=== PATIENT | female | born 2000 | race Caucasian/White ===

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

== ENCOUNTER 2018-01-30 12:30 | Emergency (ER) | payer OTHER, SELFPAY | END 2018-01-30 14:19 | disposition home or self-care (01) | LOC: SCSER 12:30 | DX: J02.9 Acute pharyngitis, unspecified (principal); J06.9 Acute upper respiratory infection, unspecified; E03.9 Hypothyroidism, unspecified; E66.9 Obesity, unspecified; F41.9 Anxiety disorder, unspecified; Z79.899 Other long term (current) drug therapy | CPT/HCPCS: 99282 ==

== ENCOUNTER 2018-04-01 01:00 | Emergency (ER) | payer SELFPAY ==
[2018-04-01 02:23] LABS: Bilirubin Small (Negative); Blood, Urine Trace (Negative); Clarity CLOUDY (Clear); Glucose, Urine (Dipstick) Negative (Negative); Leukocyte Moderate (Negative); Nitrite Positive (Negative); Protein, Urine (Dipstick) 30 mg/dL (Neg-Trace)
[2018-04-01] MEDS ORDERED: Ondansetron HCl/PF 4 MG/2 ML Vial ONE (02:28)
[2018-04-01] MEDS ORDERED: Morphine 4 MG/ML VIAL ONE (02:28)
[2018-04-01 02:34] LABS: Specific Gravity, Urine 1.026 (1.002-1.036)
[2018-04-01 02:35] LABS: RBC/HPF 0-3 HPF (0-3)
[2018-04-01 02:36] LABS: Bacteria/HPF None Seen HPF (None Seen); Crystals/HPF 1+ CA OXALATE HPF (Negative); Hyaline Casts/LPF NONE SEEN LPF (0-3 Hyaline); Renal Epithelial None Seen HPF (0-3); Squamous Epithelial 0-3 HPF (0-3); Transitional Epithelial NONE SEEN HPF (0-3); WBC/HPF 0-3 HPF (0-3); Yeast-All Forms None Seen HPF (None Seen)
[2018-04-01 02:37] LABS: Pregnancy Test - Urine (BHCG) Negative (Negative); Pregu Control Background? CLEAR/WHITE (CLR/WHITE); Pregu Control Bar Appear? YES (CONTROL BAR); Specific Gravity 1.026 (1.002-1.036)
[2018-04-01] MEDS ORDERED: cefTRIAXone\\ROCEPHIN 1 GM VIAL ONE (03:07)
--- NOTE | 2018-04-01 08:24 | CT ---
PRELIMINARY REPORT/[facility]/EMERGENTY AFTER-HOURS PROCEDURE CT Abdomen and Pelvis Without Intravenous Contrast CLINICAL HISTORY: 17 years old, female; Pain; Abdominal pain; Localized; Right; Patient HX: F17 presented to ed C/O sup rapubic abdominal pain, r flank pain, and onset yesterday. Pt reports coming into ed today because sh khadijah began to have a sharp pain in her r flank that is constant. Pt reports taking azo and drinking cranberry juice. Pt reports lmp was last month. Pt reports she takes bc. Pt reports she's monahan d pain previously, but notes that its different compared to her ovarian cysts and previous uti's. TECHNIQUE: Axial computed tomography images of the abdomen and pelvis without intravenous contrast. Coronal reformatted images were created and reviewed. COMPARISON: No relevant prior studies available. FINDINGS: Lung bases: No acute findings. No mass. No consolidation. ABDOMEN: Liver: No mass. Gallbladder and bile ducts: No calcified stones. No ductal dilation. Pancreas: No ductal dilation. No mass. Spleen: No mass. Adrenals: No mass. Kidneys and ureters: 2 mm stone in the right ureterovesical junction with mild hydroureteronephrosis. Otherwise unremarkable. No left hydronephrosis. Stomach and bowel: No evidence of bowel obstruction. Diverticulosis. PELVIS: Appendix: Normal appendix. Bladder: No stones. Reproductive: No acute findings. ABDOMEN and PELVIS: Intraperitoneal space: No free air. No significant fluid collection. Bones/joints: No acute fracture. Soft tissues: No acute findings. Vasculature: No acute findings. No abdominal aortic aneurysm. Lymph nodes: No lymphadenopathy. Few prominent mesenteric lymph nodes. IMPRESSION: Right ureterovesical junction obstructing stone. Thank you for allowing us to participate in the care of your patient. Dictated and Authenticated by: Miguel Angel Will MD 04/01/2018 4:09 AM Central Time ([place] & [place]) FINAL REPORT CT ABDOMEN AND PELVIS NONCONTRAST: DATE: 04/01/2018. TIME: Performed on an emergency basis at 0253 hours. HISTORY: Right flank pain. FINDINGS: Agree with the preliminary report by Dr. Will from [facility]. Partial obstruction at a 2 mm right ureterovesicular junction calculus. No other stones. Lack of contrast limits evaluation for other abnormalities. POS: [facility]
== END 2018-04-01 04:24 | disposition home or self-care (01) ==
LOC: ERS 01:00
DX: N13.2 Hydronephrosis with renal and ureteral calculous obstruction (principal); N39.0 Urinary tract infection, site not specified; E66.9 Obesity, unspecified; E03.9 Hypothyroidism, unspecified; F41.9 Anxiety disorder, unspecified; Z79.84 Long term (current) use of oral hypoglycemic drugs; Z79.899 Other long term (current) drug therapy; Z79.01 Long term (current) use of anticoagulants
CPT/HCPCS: 74176; 81003; 81015; 81025; 87086; 96361; 96365; 96375; J0696; J2270; J2405

== ENCOUNTER 2020-01-11 09:47 | Emergency (ER) | payer OTHER ==
[2020-01-12 12:19] LABS: SARS-CoV-2 MS2 Positive; SARS-CoV-2 N Gene Negative; SARS-CoV-2 S Gene Negative; SARS-CoV-2 orf1ab Negative
== END 2020-01-11 10:05 | disposition home or self-care (01) ==
LOC: ERS 09:47
DX: Z20.828 Contact with and (suspected) exposure to other viral communicable diseases (principal); R73.03 Prediabetes; E03.9 Hypothyroidism, unspecified; E66.9 Obesity, unspecified; F41.9 Anxiety disorder, unspecified; Z87.891 Personal history of nicotine dependence; Z79.01 Long term (current) use of anticoagulants; Z79.899 Other long term (current) drug therapy
CPT/HCPCS: 87635; 99283; U0003

== ENCOUNTER 2020-01-14 06:54 | Inpatient (IN) | payer OTHER ==
[2020-01-14 07:26] VITALS: BMI 39.5
[2020-01-14] MEDS ORDERED: HYDROcodone/Acetaminophen 5/325 mg Tablet PO PRN ×2 (08:31)
[2020-01-14] MEDS ORDERED: hydrALAZINE 20 MG/ML VIAL SLOW IVP PRN (08:31)
[2020-01-14] MEDS ORDERED: Lidocaine 1% (PF) 30 ML VIAL SC PRN (08:31)
[2020-01-14] MEDS ORDERED: Butorphanol Tartrate 1 MG/ML VIAL SLOW IVP PRN (08:31)
[2020-01-14] MEDS ORDERED: Ibuprofen 800 MG TAB PO PRN (08:31)
[2020-01-14] MEDS ORDERED: Promethazine HCl 25 MG/ML VIAL IM PRN ×2 (08:31→12:20)
[2020-01-14] MEDS ORDERED: Ondansetron PF 4 MG/2 ML Vial IVP PRN ×2 (08:31→12:20)
--- NOTE | 2020-01-14 08:31 | PDOC.BPN ---
- Brief Progress Note Interim H&P HISTORY AND PHYSICAL I have seen this patient in Triage A CC: CTX HPI: 19 yo who sees Felicitas Gomez for care, here for CTX at 38 weeks 6 days. She is scheduled for IOL this PM. here for CTX since 0100, no LOF, no VB. Good FM. States HX hypothyroidism on meds, and has had borderline pressures recently. Initial RN exam in triage, unable to check CX opening as baby was "very low". Review of Systems: Complete ROS performed and as per HPI Past medical HX: hypothyroid Past Surgical HX: none Meds: synthroid Social: negative for ETOH, drugs, smoking Allergies: none Physical exam: 140/80 90s afebrile 18 NAD CX: 5/90/0 to +1/cephalic/BOWI Monitors: cat 1, CTX on toco every 5-6 minutes Assessment and Plan: 19 yo at early term 38 weeks 6 days with borderline pressures, hypothyroid, labor. GBS negative Plan: 1. J Light aware 2. Admit 3. Pitocin if no change 4. Hold off Mag for now...check CMP 5. Pain control
[2020-01-14] MEDS: Lactated Ringer's 1,000 ML IV SCH ×2 (09:20→11:00)
[2020-01-14 09:53] LABS: Hemoglobin 13.1 g/dL (12.0-16.0); Mean Corpuscular HGB CONC 32.1 g/dL (32.0-36.0); Mean Corpuscular Hemoglobin 26.1 pg (27.0-31.0); Mean Corpuscular Volume 81.1 fL (78.0-98.0); Mean Platelet Volume 8.9 fL (7.4-10.4); Platelet Count 238 thou/uL (130-400); RBC Distribution Width 14.3 % (11.5-14.5); Red Blood Cell (RBC) Count 5.02 mill/uL (4.20-5.40); White Blood Cell (WBC) Count 12.9 thou/uL (4.8-10.8)
[2020-01-14 10:01] LABS: ALT (SGPT) 7 U/L (8-55); AST (SGOT) 14 U/L (5-34); Albumin 3.4 g/dL (3.5-5.0); Alkaline Phosphatase 229 U/L (40-110); Anion Gap 17 mmol/L (10-20); BUN (Urea Nitrogen) 11 mg/dL (7.0-18.7); Bilirubin, Total 0.3 mg/dL (0.2-1.2); Calc. Creatinine Clearance 248 mL/min (70-130); Calcium 9.2 mg/dL (7.8-10.44); Carbon Dioxide 18 mmol/L (22-29); Chloride 105 mmol/L (98-107); Estimated GFR-MDRD Greater than 90; Globulin 3.6 g/dL (2.4-3.5); Glucose 85 mg/dL (70-105); Potassium 4.5 mmol/L (3.5-5.1); Sodium 135 mmol/L (136-145)
[2020-01-14 10:20] LABS: HBSAg Index 0.14 S/CO (0-0.99); HIV (1/2) Antibody/Antigen Non-Reactive (NonReactive); HIV 1/2 INDEX 0.15 S/CO (<1.00); Hep B Surf Ag Non-Reactive S/CO (NonReactive); Syphilis Antibody Nonreactive (Nonreactive); Syphilis Antibody Index 0.05 S/CO (<1.00 Non-Reactive)
[2020-01-14] MEDS ORDERED: Fentanyl 4 mcg/Bup 0.1% Cadd 100 ML ONE ×2 (10:43→19:55)
[2020-01-14] MEDS ORDERED: diphenhydrAMINE 50 MG/ML VIAL IVP PRN (12:20)
[2020-01-14] MEDS ORDERED: EPHEDRINE 25 MG/5 ML SYRINGE SLOW IVP PRN (12:20)
[2020-01-14] MEDS ORDERED: Acetaminophen 325 MG TAB PO PRN (12:20)
[2020-01-14] MEDS ORDERED: Naloxone HCl 0.4 mg/ml Vial IVP PRN ×2 (12:20)
[2020-01-14] MEDS ORDERED: Lactated Ringer's 500 ML IV PRN (12:20)
[2020-01-14] MEDS ORDERED: Fentanyl 4 mcg/Bupivacaine 0.1% Cassette 100 ML EPIDURAL SCH (12:30)
[2020-01-14] MEDS ORDERED: Communication Order-Pharmacy FS PRN (12:30)
[2020-01-14] MEDS ORDERED: Bupivacaine 0.25% HCL 30 ML VIAL ONE (12:59)
[2020-01-14] MEDS ORDERED: Lidocaine 2% MPF 10 ML AMP (For Epidural Use) ONE (12:59)
[2020-01-14] MEDS ORDERED: EPHEDRINE 25 MG/5 ML SYRINGE ONE (12:59)
--- NOTE | 2020-01-14 13:06 | PDOC.LDPN ---
Labor & Delivery Progress Note - Subjective Subjective: comfortable (with epidural. ) - Objective Abnormal vital signs: Mild range pressures, decreased by epidual General: resting Uterine fundus: non tender Dilation: 6 Effacement: 90% Station: 0 FHT: category 2 [place] contractions every: q4mins AROM: meconium stained fluid IUPC placed: yes FSE placed: yes - Assessment (1) Gestational hypertension Code(s): O13.9 - GESTATIONAL HTN W/O SIGNIFICANT PROTEINURIA, UNSP TRIMESTER Current Visit: Yes Status: Acute (2) Primigravida Code(s): Z34.00 - ENCNTR FOR SUPRVSN OF NORMAL FIRST , UNSP TRIMESTER Current Visit: Yes Status: Acute Plan: continue plan of care
[2020-01-14] MEDS ORDERED: NS w/ Oxytocin 10 units 500 ML ONE (16:47)
[2020-01-14] MEDS ORDERED: Dextrose 5%-Lactated Ringers 1,000 ML IV SCH (20:00)
[2020-01-14] MEDS: NS / Oxytocin 40 units/1000ml 1,000 ML IV PRN ×2 (22:35→23:58)
[2020-01-14] MEDS ORDERED: Misoprostol 200 MCG TAB ONE (22:36)
--- NOTE | 2020-01-14 23:08 | PDOC.OPDEL ---
OB Operative/Delivery Note Delivery Dr/Surgeon: Kole Pre-Delivery Diagnosis: active labor Procedure/Post Delivery Dx: spontaneous vaginal delivery Weeks gestation: 38 (and 6 days) Anesthesia: epidural - Findings A Sex: male Weight: 7 lb 11 oz - 1 min: 7 - 5 min: 8 - Additional Findings/Plan Placenta delivered: spontaneous Repaired Obstetrical Laceration: other (left periurethral) Estimated blood loss: 992mL QBL Post delivery plan: routine recovery
[2020-01-15] MEDS ORDERED: NS / Oxytocin 40 units/1000ml 1,000 ML IV SCH (00:55)
[2020-01-15] MEDS ORDERED: Bisacodyl 10 MG SUPP PR PRN (00:55)
[2020-01-15] MEDS ORDERED: HYDROcodone/Acetaminophen 5/325 mg Tablet PO PRN ×2 (00:55)
[2020-01-15] MEDS ORDERED: hydrALAZINE 20 MG/ML VIAL SLOW IVP PRN (00:55)
[2020-01-15] MEDS ORDERED: Benzocaine-Menthol 82.5 ML CAN TOP PRN (00:55)
[2020-01-15] MEDS ORDERED: Misoprostol 200 MCG TAB VAG PRN (00:55)
[2020-01-15] MEDS ORDERED: Milk Of Magnesia 30 ML UDCUP PO PRN (00:55)
[2020-01-15] MEDS: Ibuprofen 800 MG TAB PO SCH ×3 (02:58→20:27)
[2020-01-15 05:58] LABS: Hemoglobin 10.4 g/dL (12.0-16.0); Mean Corpuscular HGB CONC 31.9 g/dL (32.0-36.0); Mean Corpuscular Volume 81.4 fL (78.0-98.0); Mean Platelet Volume 8.7 fL (7.4-10.4); Platelet Count 218 thou/uL (130-400); RBC Distribution Width 14.4 % (11.5-14.5); White Blood Cell (WBC) Count 16.2 thou/uL (4.8-10.8)
[2020-01-15] MEDS: Lactated Ringer's 1,000 ML IV SCH (07:12)
[2020-01-15] MEDS: Ferrous Sulfate 325 MG TAB PO SCH ×2 (07:20→20:03)
[2020-01-15] MEDS: Prenatal Vitamin 1 TAB PO SCH (08:27)
[2020-01-15] MEDS: Docusate Calcium (SURFAK) 240 MG CAP PO SCH ×2 (08:28→20:27)
[2020-01-15] MEDS ORDERED: Adacel (T-DAP) 0.5 ML SYRINGE IM ONE (09:00)
--- NOTE | 2020-01-15 12:08 | PDOC.PP ---
Post Progress Note Post Day #: 1 Subjective: pt is doing well. Denies dizziness, sob, pain in legs. has yet to eat. PO intake tolerated: yes Flatus: yes Ambulation: yes Vital Signs (12 hours) Temp Pulse Resp BP 01/15/20 03:52 98.6 F 94 14 138/78 01/15/20 02:40 98.2 F 93 12 137/73 01/15/20 01:21 99.2 F 82 14 134/69 Weight Weight 245 lb - Physical Examination General: NAD Respiratory: non-labored breathing Abdominal: no distention Extremities: negative homans (B) Skin: no rash Neurological: no gross focal deficits Psychiatric: A&Ox3, normal affect Result Diagrams: 01/15/20 05:38 01/14/20 09:27 Additional Labs: Post Labs Blood Type A POSITIVE 01/14/20 09:30 Hep Bs Antigen Non-Reactive S/CO (NonReactive) 01/14/20 09:30 (1) Gestational hypertension Code(s): O13.9 - GESTATIONAL HTN W/O SIGNIFICANT PROTEINURIA, UNSP TRIMESTER Status: Acute (2) Primigravida Code(s): Z34.00 - ENCNTR FOR SUPRVSN OF NORMAL FIRST , UNSP TRIMESTER Status: Acute - Assessment/Plan A: s/p on day 1. NML exam. BP have normalized since delivery. 3pt Hg drop c/w 992 QBL- pt is asymptomatic P: routine PP care f/up with Evaluate for discharge home tomorrow.
[2020-01-16] MEDS: Ibuprofen 800 MG TAB PO SCH ×2 (05:46→14:02)
[2020-01-16] MEDS: Docusate Calcium (SURFAK) 240 MG CAP PO SCH (08:13)
[2020-01-16] MEDS: Prenatal Vitamin 1 TAB PO SCH (08:13)
[2020-01-16] MEDS: Ferrous Sulfate 325 MG TAB PO SCH (08:14)
[2020-01-16 08:37] VITALS: BP 139/88; TEMP 97.6
== END 2020-01-16 14:55 | disposition home or self-care (01) | DRG 807 ==
LOC: L&D 06:54 → 3SW 01-15 01:51
PROVIDERS: ADMIT Student in an Organized Health Care Education/Training Program; ATTEND Student in an Organized Health Care Education/Training Program
PROC: 10E0XZZ Delivery of Products of Conception, External Approach (ICD-10-PCS; principal; 2020-01-14)
PROC: 0UQMXZZ Repair Vulva, External Approach (ICD-10-PCS; 2020-01-14)
DX: O13.4 Gestational [pregnancy-induced] hypertension without significant proteinuria, complicating childbirth (principal); Z37.0 Single live birth; O71.82 Other specified trauma to perineum and vulva; Z3A.38 38 weeks gestation of pregnancy
CPT/HCPCS: 36415; 51702; 80053; 85027; 86780; 86850; 86900; 86901; 87340; 87389; 88307; 99285; J0360; J2001; J2590; S0020

== ENCOUNTER 2020-04-01 15:27 | Emergency (ER) | payer MEDICAID, OTHER ==
[2020-04-01 16:25] LABS: #Basophils 0.1 thou/uL (0.0-0.2); #Eosinphils 0.1 thou/uL (0.0-0.7); #Lymphocytes 2.9 thou/uL (1.20-3.40); #Monocytes 0.3 thou/uL (0.11-0.59); #Neutrophils 6.5 thou/uL (1.40-6.50); %Basophils 0.6 % (0.0-1.0); %Eosinophils 1.1 % (0.0-10.0); %Lymphocytes 29.2 % (21.0-51.0); %Monocytes 3.4 % (0.0-10.0); %Neutrophils 65.7 % (42.0-75.0); Hemoglobin 12.7 g/dL (12.0-16.0); Mean Corpuscular HGB CONC 33.1 g/dL (32.0-36.0); Mean Corpuscular Hemoglobin 25.8 pg (27.0-31.0); Mean Platelet Volume 8.1 fL (7.4-10.4); Platelet Count 322 thou/uL (130-400); RBC Distribution Width 14.9 % (11.5-14.5); Red Blood Cell (RBC) Count 4.93 mill/uL (4.20-5.40); White Blood Cell (WBC) Count 9.8 thou/uL (4.8-10.8)
[2020-04-01] MEDS ORDERED: Ibuprofen 200 MG TAB ONE (16:43)
[2020-04-01 16:47] LABS: BHCG - Serum Negative (NEGATIVE); Pregs Control Background? CLEAR/WHITE (CLR/WHITE); Pregs Control Bar Appear? YES (CONTROL BAR)
[2020-04-01 16:52] LABS: ALT (SGPT) 21 U/L (8-55); AST (SGOT) 33 U/L (5-34); Albumin 3.8 g/dL (3.5-5.0); Alkaline Phosphatase 85 U/L (40-110); Anion Gap 14 mmol/L (10-20); BUN (Urea Nitrogen) 13 mg/dL (7.0-18.7); Bilirubin, Total 0.2 mg/dL (0.2-1.2); Calc. Creatinine Clearance 0 mL/min (70-130); Calcium 8.9 mg/dL (7.8-10.44); Carbon Dioxide 21 mmol/L (22-29); Chloride 103 mmol/L (98-107); Estimated GFR-MDRD Greater than 90; Globulin 4.5 g/dL (2.4-3.5); Glucose 91 mg/dL (70-105); Potassium 4.4 mmol/L (3.5-5.1); Protein, Total 8.3 g/dL (6.0-8.3); Sodium 134 mmol/L (136-145)
--- NOTE | 2020-04-12 13:24 | EKG ---
Test Reason : Blood Pressure : / mmHG Vent. Rate : 066 BPM Atrial Rate : 066 BPM P-R Int : 142 ms QRS Dur : 082 ms QT Int : 434 ms P-R-T Axes : 000 021 045 degrees QTc Int : 454 ms Normal sinus rhythm Normal ECG Confirmed by NEVA GALLO DO ([id number]), fan mail editor ERNESTO MOLINA ([id number]) on 04/12/2020 1:23:47 PM Referred By: Confirmed By:NEVA GALLO DO
== END 2020-04-01 18:00 | disposition home or self-care (01) ==
LOC: ERS 15:27
DX: R55 Syncope and collapse (principal); S09.90XA Unspecified injury of head, initial encounter; E11.9 Type 2 diabetes mellitus without complications; E03.9 Hypothyroidism, unspecified; F41.9 Anxiety disorder, unspecified; Z87.891 Personal history of nicotine dependence; W22.8XXA Striking against or struck by other objects, initial encounter
CPT/HCPCS: 36415; 80053; 84703; 85025; 93005